=== PATIENT | male | born 1945 | race Caucasian/White ===

== ENCOUNTER 2017-02-22 10:56 | Inpatient (IN) | payer MEDICARE, BC ==
[~2017-02-22] VITALS: Ht 180.3 cm; Wt 105.6 kg
[~2017-02-22 10:56] MED LIST: AMARYL2 MG PO; FISH OIL 1000MG1 CAP PO; FISH OIL500 MG PO; GLUCOPHAGE1000 MG PO; JANUVIA 100MG100 MG PO; LISINOPRIL10 MG PO; MULTI VITAMINS1 TAB PO; NORCO 325 MG-51 TAB PO; PREDNISONE 2.52.5 MG PO; PRINIVIL10 MG PO; PYRIDIUM 100MG100 MG PO; SENOKOT S 50 MG1 TAB PO; TEKTURNA HCT PO
[2017-02-22] MEDS ORDERED: EPA FISH OIL1 SGL PO (11:57)
[2017-02-22 12:14] LABS: BASO % 0.2 % (0.0-2.0); GRAN # 18.8 (1.4-6.5); GRAN % 89.1 % (42.2-75.2); HEMATOCRIT 41.1 % (42.0-52.0); HEMOGLOBIN 13.7 g/dl (13.5-18.0); LYMPH # 0.8 (1.2-3.4); LYMPH % 3.7 % (20.0-51.0); MEAN CELL VOLUME 87 fl (80.0-100.0); MEAN CORPUSCULAR HEMOGLOBIN 29 pg (27.0-31.0); MEAN CORPUSCULAR HGB CONC 33 g/dl (33.0-37.0); MEAN PLATELET VOLUME 10.9 fl (7.4-10.4); MONO # 1.3 (0.1-0.6); MONO % 6.3 % (1.7-9.3); PLATELET COUNT 155 K/mm3 (130-400); RED BLOOD COUNT 4.73 M/mm3 (4.20-5.60); REDCELL DISTRIBUTION WIDTH-CV 14.1 % (11.5-14.5)
[2017-02-22 12:19] LABS: ADJUSTED CALCIUM 9.4 mg/dL (8.4-10.2); ALBUMIN 4.1 gm/dL (3.5-5.0); BILIRUBIN,TOTAL 2.9 mg/dL (0.0-1.0); CALCIUM 9.5 mg/dL (8.4-10.2); CREATININE, serum 2.5 mg/dL (0.66-1.25); POTASSIUM 4.9 mmol/L (3.4-5.0); TOTAL PROTEIN 7.5 gm/dL (6.4-8.2)
[2017-02-22 12:25] LABS: WHITE BLOOD COUNT 21.1 K/mm3 (4.8-10.8)
[2017-02-22 12:58] LABS: PH 7 (5-8); URINE APPEARANCE Cloudy; URINE BILIRUBIN Negative (NEGATIVE); URINE BLOOD 3+ (NEGATIVE); URINE COLOR Yellow; URINE GLUCOSE Negative (NEGATIVE); URINE KETONE Negative (NEGATIVE); URINE UROBILINOGEN Negative (NEGATIVE)
[2017-02-22 13:12] LABS: SQUAMOUS EPITHELIAL 0-2 /hpf; URINE WBC >50 /hpf
[2017-02-22 13:15] LABS: URINE BACTERIA Moderate /hpf
[2017-02-22 17:07] VITALS: BP 87/50; PULSE 97; TEMP 98.7
[2017-02-22 17:09] VITALS: BP 87/50; PULSE 95; TEMP 98.7
[2017-02-22 19:14] VITALS: BP 100/55; PULSE 102; TEMP 99.3
[2017-02-22 23:18] VITALS: BP 118/60; PULSE 100; TEMP 98.7
[2017-02-23] VITALS (7 sets, daily range): BP systolic 91–123; BP diastolic 47–69; PULSE 88–114; TEMP 98.3–100.4
[2017-02-23 07:19] LABS: ADD PATHOLOGY DIFF REVIEW NO; HEMATOCRIT 36.7 % (42.0-52.0); HEMOGLOBIN 12.1 g/dl (13.5-18.0); MEAN CELL VOLUME 88 fl (80.0-100.0); MEAN CORPUSCULAR HEMOGLOBIN 29 pg (27.0-31.0); MEAN CORPUSCULAR HGB CONC 33 g/dl (33.0-37.0); MEAN PLATELET VOLUME 11.2 fl (7.4-10.4); PLATELET COUNT 150 K/mm3 (130-400); RED BLOOD COUNT 4.19 M/mm3 (4.20-5.60); REDCELL DISTRIBUTION WIDTH-CV 14.1 % (11.5-14.5); WHITE BLOOD COUNT 13.9 K/mm3 (4.8-10.8)
[2017-02-23 07:27] LABS: CALCIUM 8.6 mg/dL (8.4-10.2); CREATININE, serum 2.4 mg/dL (0.66-1.25); POTASSIUM 4.3 mmol/L (3.4-5.0)
[2017-02-23 07:56] LABS: BAND 14 % (0-10); NEUTROPHILS 81 % (42.0-75.2); PLATELET ESTIMATE NORMAL (NORMAL); TOTAL CELLS COUNTED 100
[2017-02-24 03:24] VITALS: BP 120/68; PULSE 97; TEMP 98.5
[2017-02-24 07:16] LABS: CREATININE, serum 2.02 mg/dL (0.66-1.25)
[2017-02-24 07:17] LABS: CALCIUM 8.6 mg/dL (8.4-10.2); POTASSIUM 4.2 mmol/L (3.4-5.0)
[2017-02-24 08:07] VITALS: BP 132/72; PULSE 96; TEMP 97.5
[2017-02-24 08:55] LABS: BASO % 0.3 % (0.0-2.0); EOS % 0.3 % (0-4.0); GRAN # 8.1 (1.4-6.5); LYMPH # 0.7 (1.2-3.4); LYMPH % 7.1 % (20.0-51.0); MEAN CELL VOLUME 88 fl (80.0-100.0); MEAN CORPUSCULAR HGB CONC 33 g/dl (33.0-37.0); MEAN PLATELET VOLUME 11.6 fl (7.4-10.4); MONO # 0.9 (0.1-0.6); MONO % 8.8 % (1.7-9.3); PLATELET COUNT 149 K/mm3 (130-400); RED BLOOD COUNT 4.02 M/mm3 (4.20-5.60); REDCELL DISTRIBUTION WIDTH-CV 14.1 % (11.5-14.5); WHITE BLOOD COUNT 9.7 K/mm3 (4.8-10.8)
[2017-02-24 08:59] LABS: HEMATOCRIT 35.3 % (42.0-52.0); HEMOGLOBIN 11.6 g/dl (13.5-18.0); MEAN CORPUSCULAR HEMOGLOBIN 29 pg (27.0-31.0)
[2017-02-24 11:35] VITALS: BP 104/56; PULSE 88; TEMP 98.6
[2017-02-24 15:39] VITALS: BP 134/79; PULSE 83; TEMP 98.7
[2017-02-24 19:22] VITALS: BP 156/78; PULSE 110; TEMP 101.8
[2017-02-24 22:51] VITALS: BP 122/64; PULSE 90; TEMP 99.1
[2017-02-25 02:50] VITALS: BP 155/80; PULSE 97; TEMP 98.4
[2017-02-25 07:41] VITALS: BP 129/79; PULSE 91; TEMP 97.8
[2017-02-25 08:18] LABS: CALCIUM 8.8 mg/dL (8.4-10.2); CREATININE, serum 1.88 mg/dL (0.66-1.25); POTASSIUM 4.2 mmol/L (3.4-5.0)
[2017-02-25 11:45] VITALS: BP 154/88; PULSE 87; TEMP 98.2
[2017-02-25 16:35] VITALS: BP 121/73; PULSE 89; TEMP 98.4
[2017-02-25 19:39] VITALS: BP 133/77; PULSE 67; TEMP 97.7
[2017-02-25 23:40] VITALS: BP 125/76; PULSE 98; TEMP 100.7; TEMP 99.9
[2017-02-26 03:27] VITALS: BP 120/69; PULSE 103; TEMP 100
[2017-02-26 08:41] VITALS: BP 118/66; PULSE 83; TEMP 97.7; TEMP 98.6
[2017-02-26] MEDS ORDERED: OMNICEF 300MG300 MG PO (10:13)
== END 2017-02-26 11:45 | disposition home or self-care (01) | DRG 872 ==
LOC: COL.ER 10:56 → MEDICAL 13:56
PROVIDERS: Family Medicine; Nurse Practitioner Family; Urology
DX: A41.9 Sepsis, unspecified organism (principal); N39.0 Urinary tract infection, site not specified; N17.9 Acute kidney failure, unspecified; E11.22 Type 2 diabetes mellitus with diabetic chronic kidney disease; I12.9 Hypertensive chronic kidney disease with stage 1 through stage 4 chronic kidney disease, or unspecified chronic kidney disease; N18.9 Chronic kidney disease, unspecified; R51 Headache; B96.1 Klebsiella pneumoniae [K. pneumoniae] as the cause of diseases classified elsewhere; Z85.51 Personal history of malignant neoplasm of bladder; Z85.46 Personal history of malignant neoplasm of prostate
CPT/HCPCS: 99223-AI; 99232-AI; 99239; J0696; J1815; J7030; J7040

== ENCOUNTER → 2017-03-19 | Outpatient (CLI) | payer MEDICARE, BC ==
[~2017-03-19] MED LIST changes: +AZO-CRANBERRY450 MG PO; +CIPRO 500MG TA500 MG PO; +EPA FISH OIL1 SGL PO; +OMNICEF 300MG300 MG PO
== END ==
LOC: COL.RAD 07:52
DX: C67.9 Malignant neoplasm of bladder, unspecified (principal)
CPT/HCPCS: A9541

== ENCOUNTER 2017-04-03 06:21 | Day surgery (SDC) | payer MEDICARE, BC ==
[2017-04-03] VITALS (11 sets, daily range): BP systolic 97–130; BP diastolic 67–85; PULSE 72–95; TEMP 97–98.5
[~2017-04-03] VITALS: Ht 180.3 cm; Wt 99.5 kg
[~2017-04-03 06:21] MED LIST changes: -AZO-CRANBERRY450 MG PO; -CIPRO 500MG TA500 MG PO
[2017-04-03 07:06] LABS: BASO % 0.3 % (0.0-2.0); EOS # 0.2 (0.0-0.7); EOS % 1.7 % (0-4.0); GRAN # 7.5 (1.4-6.5); GRAN % 72.3 % (42.2-75.2); HEMATOCRIT 37.5 % (42.0-52.0); HEMOGLOBIN 12.4 g/dl (13.5-18.0); LYMPH # 1.9 (1.2-3.4); LYMPH % 18.1 % (20.0-51.0); MEAN CELL VOLUME 87 fl (80.0-100.0); MEAN CORPUSCULAR HEMOGLOBIN 29 pg (27.0-31.0); MEAN CORPUSCULAR HGB CONC 33 g/dl (33.0-37.0); MEAN PLATELET VOLUME 10.3 fl (7.4-10.4); MONO # 0.8 (0.1-0.6); MONO % 7.2 % (1.7-9.3); PLATELET COUNT 259 K/mm3 (130-400); RED BLOOD COUNT 4.29 M/mm3 (4.20-5.60); REDCELL DISTRIBUTION WIDTH-CV 13.9 % (11.5-14.5); WHITE BLOOD COUNT 10.4 K/mm3 (4.8-10.8)
[2017-04-03] MEDS ORDERED: CIPRO 500MG TA500 MG PO (07:11)
[2017-04-03] MEDS ORDERED: AZO-CRANBERRY450 MG PO (07:11)
[2017-04-03 07:17] LABS: CALCIUM 9.7 mg/dL (8.4-10.2); POTASSIUM 4.9 mmol/L (3.4-5.0)
[2017-04-03 11:31] LABS: INR 1.1 (0.8-3.0); PROTHROMBIN TIME 12.7 SECONDS (9.7-12.8)
[2017-04-04 00:51] VITALS: BP 113/73; PULSE 91; TEMP 97.5
[2017-04-04 05:13] VITALS: BP 105/68; PULSE 84; TEMP 97.5
[2017-04-04 14:28] VITALS: BP 99/62; PULSE 87
== END 2017-04-04 16:15 | disposition home or self-care (01) ==
LOC: SDCO 06:21 → JCC 17:52 → SDCO 04-04 16:15
PROVIDERS: Radiology Diagnostic Radiology; Urology
DX: N28.89 Other specified disorders of kidney and ureter (principal); I10 Essential (primary) hypertension; E87.6 Hypokalemia; N13.30 Unspecified hydronephrosis; E11.9 Type 2 diabetes mellitus without complications; M19.90 Unspecified osteoarthritis, unspecified site; G47.33 Obstructive sleep apnea (adult) (pediatric); M35.3 Polymyalgia rheumatica; Z85.51 Personal history of malignant neoplasm of bladder; Z90.6 Acquired absence of other parts of urinary tract; Z85.46 Personal history of malignant neoplasm of prostate; Z90.49 Acquired absence of other specified parts of digestive tract; Z79.84 Long term (current) use of oral hypoglycemic drugs; Z87.891 Personal history of nicotine dependence; Z98.52 Vasectomy status; Z93.6 Other artificial openings of urinary tract status; E78.5 Hyperlipidemia, unspecified; Z80.0 Family history of malignant neoplasm of digestive organs; Z83.3 Family history of diabetes mellitus
CPT/HCPCS: OP; A9284; C1729; C1769; C1887; C1894; J0690; J1100; J2250; J2405; J2704; J3010; J7030; J7040; Q9967

== ENCOUNTER 2017-04-09 10:30 | Observation (INO) | payer MEDICARE, BC ==
[2017-04-09] VITALS (7 sets, daily range): BP systolic 108–139; BP diastolic 56–98; PULSE 54–95; TEMP 97.5–98.6
[~2017-04-09] VITALS: Ht 180.3 cm; Wt 98.6 kg
[~2017-04-09 10:30] MED LIST changes: +AZO-CRANBERRY450 MG PO; +CIPRO 500MG TA500 MG PO
[2017-04-09 16:47] LABS: HEMATOCRIT 42.1 % (42.0-52.0); HEMOGLOBIN 13.9 g/dl (13.5-18.0); MEAN CELL VOLUME 88 fl (80.0-100.0); MEAN CORPUSCULAR HEMOGLOBIN 29 pg (27.0-31.0); MEAN CORPUSCULAR HGB CONC 33 g/dl (33.0-37.0); MEAN PLATELET VOLUME 10.3 fl (7.4-10.4); PLATELET COUNT 281 K/mm3 (130-400); RED BLOOD COUNT 4.79 M/mm3 (4.20-5.60); REDCELL DISTRIBUTION WIDTH-CV 14.4 % (11.5-14.5); WHITE BLOOD COUNT 12.2 K/mm3 (4.8-10.8)
[2017-04-09 16:59] LABS: CALCIUM 10.3 mg/dL (8.4-10.2); CREATININE, serum 1.86 mg/dL (0.66-1.25)
[2017-04-10] VITALS (9 sets, daily range): BP systolic 90–123; BP diastolic 47–81; PULSE 53–91; TEMP 97–97.7
[2017-04-11 02:01] VITALS: BP 94/62; PULSE 85; TEMP 97.9
[2017-04-11 04:51] VITALS: BP 100/47; PULSE 91; TEMP 98.3
[2017-04-11 09:46] VITALS: BP 86/55; PULSE 84; TEMP 96.6
== END 2017-04-11 13:34 | disposition home or self-care (01) ==
LOC: COL.CAR 10:30 → EUO 10:30 → JCC 14:53
PROVIDERS: Urology
DX: N13.30 Unspecified hydronephrosis (principal); N13.4 Hydroureter; E11.9 Type 2 diabetes mellitus without complications; E78.5 Hyperlipidemia, unspecified; I10 Essential (primary) hypertension; G47.33 Obstructive sleep apnea (adult) (pediatric); M35.3 Polymyalgia rheumatica; L40.9 Psoriasis, unspecified; N35.9 Urethral stricture, unspecified; Z79.84 Long term (current) use of oral hypoglycemic drugs; Z80.0 Family history of malignant neoplasm of digestive organs; Z83.3 Family history of diabetes mellitus; Z85.51 Personal history of malignant neoplasm of bladder; Z87.891 Personal history of nicotine dependence; Z90.49 Acquired absence of other specified parts of digestive tract; Z98.52 Vasectomy status; Z90.79 Acquired absence of other genital organ(s); Z85.46 Personal history of malignant neoplasm of prostate; Z93.6 Other artificial openings of urinary tract status; Z90.6 Acquired absence of other parts of urinary tract
CPT/HCPCS: A9284; C1726; C1729; C1758; C1769; C1887; C1894; C2617; G0378; G0379; J0690; J2250; J2405; J2704; J3010; J7030; J7120; Q9967

== ENCOUNTER → 2017-05-20 | Outpatient (CLI) | payer MEDICARE, BC | LOC: COL.RAD 07:25 | DX: N28.1 Cyst of kidney, acquired (principal); Z85.51 Personal history of malignant neoplasm of bladder ==

== ENCOUNTER → 2017-06-17 | Outpatient (CLI) | payer MEDICARE, BC | LOC: COL.RAD 13:29 | DX: N13.1 Hydronephrosis with ureteral stricture, not elsewhere classified (principal) ==

== ENCOUNTER → 2017-07-18 | Outpatient (CLI) | payer MEDICARE, BC | LOC: COL.RAD 13:06 | DX: N13.1 Hydronephrosis with ureteral stricture, not elsewhere classified (principal) ==

== ENCOUNTER → 2017-10-15 | Outpatient (CLI) | payer MEDICARE, BC | LOC: COL.RAD 09:31 | DX: N28.1 Cyst of kidney, acquired (principal); N13.1 Hydronephrosis with ureteral stricture, not elsewhere classified; Z85.51 Personal history of malignant neoplasm of bladder ==

== ENCOUNTER → 2017-11-24 | Outpatient (CLI) | payer MEDICARE, BC | LOC: COL.RAD 09:47 | DX: N13.1 Hydronephrosis with ureteral stricture, not elsewhere classified (principal); Z85.51 Personal history of malignant neoplasm of bladder | CPT/HCPCS: A9562; J1940 ==

== ENCOUNTER 2017-12-03 11:52 | Observation (INO) | payer MEDICARE, BC ==
[2017-12-03] VITALS (7 sets, daily range): BP systolic 108–121; BP diastolic 68–84; PULSE 56–80; TEMP 97.8–98.6
[~2017-12-03] VITALS: Ht 180.3 cm; Wt 104.4 kg
[2017-12-03 13:11] LABS: CALCIUM 9.6 mg/dL (8.4-10.2); CREATININE, serum 2.19 mg/dL (0.66-1.25); POTASSIUM 4.7 mmol/L (3.4-5.0)
[2017-12-03] MEDS ORDERED: ZESTRIL 5MG5 MG PO (13:25)
[2017-12-03] MEDS ORDERED: EPA FISH OIL1 SGL PO (13:26)
[2017-12-03] MEDS ORDERED: CRANBERRY500 M3 PO (13:27)
[2017-12-03] MEDS ORDERED: CIPRO 500MG TA500 MG PO (13:28)
[2017-12-04] VITALS (14 sets, daily range): BP systolic 112–148; BP diastolic 64–96; PULSE 69–108; TEMP 97.6–98.9
[2017-12-04 06:09] LABS: CALCIUM 8.9 mg/dL (8.4-10.2); CREATININE, serum 2.19 mg/dL (0.66-1.25); POTASSIUM 4.5 mmol/L (3.4-5.0)
[2017-12-04 08:01] LABS: BASO # 0.1 (0.0-0.2); BASO % 0.5 % (0.0-2.0); EOS # 0.3 (0.0-0.7); EOS % 2.9 % (0-4.0); GRAN # 7.2 (1.4-6.5); GRAN % 67.7 % (42.2-75.2); HEMATOCRIT 38.8 % (42.0-52.0); HEMOGLOBIN 12.7 g/dl (13.5-18.0); LYMPH # 2.3 (1.2-3.4); LYMPH % 21.3 % (20.0-51.0); MEAN CELL VOLUME 88 fl (80.0-100.0); MEAN CORPUSCULAR HEMOGLOBIN 29 pg (27.0-31.0); MEAN CORPUSCULAR HGB CONC 33 g/dl (33.0-37.0); MEAN PLATELET VOLUME 10.8 fl (7.4-10.4); MONO # 0.8 (0.1-0.6); MONO % 7.1 % (1.7-9.3); PLATELET COUNT 223 K/mm3 (130-400); RED BLOOD COUNT 4.43 M/mm3 (4.20-5.60); REDCELL DISTRIBUTION WIDTH-CV 13.6 % (11.5-14.5)
[2017-12-04 08:04] LABS: INR 1.1 (0.8-3.0); PROTHROMBIN TIME 12.8 SECONDS (9.7-12.8)
[2017-12-05 00:35] VITALS: BP 118/80; PULSE 99; TEMP 98.7
[2017-12-05 03:56] VITALS: BP 120/72; PULSE 98; TEMP 99.1
[2017-12-05 08:31] VITALS: BP 128/68; PULSE 70; TEMP 99.4
== END 2017-12-05 13:30 | disposition home or self-care (01) ==
LOC: SDCO 11:52 → MEDICAL 17:17 → SDCO 12-04 08:30 → MEDICAL 12-04 08:30
PROVIDERS: Physician Assistant; Radiology Diagnostic Radiology; Urology
DX: N99.538 Other complication of continent stoma of urinary tract (principal); E11.9 Type 2 diabetes mellitus without complications; E78.5 Hyperlipidemia, unspecified; I10 Essential (primary) hypertension; G47.33 Obstructive sleep apnea (adult) (pediatric); L40.9 Psoriasis, unspecified; M35.3 Polymyalgia rheumatica; Z98.52 Vasectomy status; Z90.79 Acquired absence of other genital organ(s); Z88.0 Allergy status to penicillin; Z88.1 Allergy status to other antibiotic agents; Z90.49 Acquired absence of other specified parts of digestive tract; Z85.51 Personal history of malignant neoplasm of bladder; Z87.891 Personal history of nicotine dependence; Z85.46 Personal history of malignant neoplasm of prostate; Z80.0 Family history of malignant neoplasm of digestive organs; Z83.3 Family history of diabetes mellitus
CPT/HCPCS: OP; C1769; C2617; G0378; J0690; J1815; J2250; J2405; J2704; J2765; J3010; J7030; Q9967